=== PATIENT | male | born 1980 | race Caucasian/White ===

== ENCOUNTER → 2020-11-19 15:19 | Outpatient (BNVA) | payer MEDICAID, SELFPAY | PROVIDERS: PCP Family Medicine; Visit Provider Nurse Practitioner Family | DX: Z76.89 Persons encountering health services in other specified circumstances (principal) ==

== ENCOUNTER 2021-03-18 10:10 | Emergency (ER) | payer MEDICAID, SELFPAY ==
[2021-03-18 10:20] VITALS: BP 134/84; PULSE 81; RESP 18; TEMP 37.1; O2SAT 95; BMI 47.2
--- NOTE | 2021-03-18 10:52 | ED_ITS ---
HPI - Ear Problem General Chief complaint: Ear Problems Stated complaint: FB in ear Time Seen by Provider: 03/18/21 10:19 Source: patient Mode of arrival: ambulatory Limitations: no limitations History of Present Illness HPI Narrative: Patient presents to the ED for decreasing hearing in left ear. Patient denies any headache, dizziness, fever, or chills. Patient states mild left ear pain. MD Complaint: ear pain Related Data Home Medications Medication Instructions Recorded Confirmed docusate sodium 100 mg capsule 100 mg PO DAILY 11/19/20 11/19/20 polyethylene glycol 3350 17 17 g PO DAILY 11/19/20 11/19/20 gram/dose oral powder sennosides 8.6 mg tablet 8.6 mg PO BEDTIME 11/19/20 11/19/20 Previous Rx's Medication Instructions Recorded cefpodoxime 200 mg PO Q12H #14 tab 03/18/21 vylygfwe-afggay-WE-thonzonium 4 drp OTIC (EAR) RIGHT QID 7 Days 03/18/21 [Cortisporin-TC] #10 ml Allergies Allergy/AdvReac Type Severity Reaction Status Date / Time Penicillins Allergy Severe RASH/AGITAT Verified 11/19/20 15:19 ION Review of Systems Review of Systems: Yes all other systems are reviewed and are negative Constitutional: Constitutional: Reports as per HPI and Reports no additional constitutional complaints Eyes: Eyes: Reports as per HPI and Reports no additional eye complaints ENT: Reports system reviewed and no additional complaints, except as documented and Reports as per HPI Comments: Ear issues Cardiovascular: Cardiovascular: Reports as per HPI and Reports no additional cardiovascular complaints Respiratory: Respiratory: Reports as per HPI and Reports no additional respiratory complaints Gastrointestinal: Gastrointestinal: Reports as per HPI and Reports no additional gastrointestinal complaints Genitourinary: Genitourinary: Reports no additional male genitourinary complaints and Reports as per HPI Musculoskeletal: Musculoskeletal: Reports no additional musculoskeletal complaints and Reports as per HPI Neurologic: Reports system reviewed and no additional complaints, except as documented and Reports as per HPI Psychiatric: Psychiatric: Reports no additional psychiatric complaints and Reports as per HPI PMFSH Past Medical History Medical History (Updated 03/18/21 @ 10:56 by DAMIEN King) Constipation Paraplegia Surgical History Hx of appendectomy Family History Family History (Updated 11/19/20 @ 15:21 by YAEL Carlson) Father Unknown family medical history Mother No problems noted. Social History Social History (Updated 11/19/20 @ 15:21 by YAEL Carlson) Alcohol intake: current Alcohol intake frequency: does not drink Smoking Status: Current every day smoker Tobacco Type: Cigarette Cigarettes Per Day: 3 Advance Directives: Yes Advance Directives Information Provided: No Advance Directives on File: No Physical Exam Vital Signs: Vital Signs: Last Vital Signs Temp 98.7 F 03/18/21 10:20 Pulse 81 03/18/21 10:20 Resp 18 03/18/21 10:20 BP 134/84 03/18/21 10:20 Pulse Ox 95 03/18/21 10:20 Body Mass Index 47.2 Const: General: cooperative, healthy appearing, comfortable, no acute distress, well developed, alert, awake and Physically active Orientation/consciousness: patient oriented x3 HENMT: Head: Yes normal to inspection, Yes No palpable skull fracture present, Yes normocephalic, Yes atraumatic and No abrasion Ears: hearing grossly normal bilaterally, external ears normal and unable to visualize TM (left ear yellow discharge) Eyes: General: appearance normal, both eyes and all related structures Neck: Neck: Yes normal visual inspection, Yes full ROM, Yes no lymphadenopathy, Yes no meningeal signs, Yes trachea midline, Yes supple and No tender Chest: Chest palpation & inspection: normal inspection of the chest and normal palpation of entire chest wall Resp: Effort & Inspection: normal respiratory effort and able to speak in complete sentences Auscultation: clear to auscultation bilaterally Cardio: Jugular venous distension: no JVD Heart sounds: S1 normal heart sound present and S2 normal heart sound present GI: Inspection: Yes normal to inspection Palpation (GI): Soft to palpation, not firm, nontender, no guarding and not rigid : General: No CVA tenderness and Yes no CVA tenderness Back/Spine/Pelvis: Back: no CVA tenderness, No CVA tenderness and No back tenderness Skin: General skin exam: no rashes or lesions noted and elasticity normal Neuro: General: patient oriented x3, no meningeal signs and CN's II-XI intact bilaterally Cranial nerves: Yes CN's II-XII intact bilaterally Extrem: General: Yes normal to inspection and Yes full ROM Psych: Appearance: grossly normal, well kempt and not disheveled Course Course Course Narrative: History physical exam does not indicate cerumen impaction. History physical exam indicate otitis externa Reevaluation(s) Reevaluation #1: Patient discharged with ear drops and oral antibiotics for otitis media Reevaluation #2: Patient was called at home and informed he should placed Cortisporin the left ear which contains otitis externa MDM - Ear MDM Narrative Medical decision making narrative: Otitis externa Discharge Plan Discharge Clinical Impression: Otitis externa Patient Disposition: Home, Self-Care Instructions: Otitis Externa (ED) Additional Instructions: Return to ED for worsening ear pain, blood from ear, discharge from ear, headache, swelling and redness behind the ear, fever, chills, total loss of hearing, or any other concerning symptoms. Prescriptions: New Cortisporin-TC 3.3-3-10-0.5 mg/mL drops,suspension 4 drp otic (ear) right QID 7 Days Qty: 10 RF: 0 cefpodoxime 200 mg tablet 200 mg PO Q12H Qty: 14 RF: 0 No Action docusate sodium [Colace] 100 mg capsule 100 mg PO DAILY RF: 0 sennosides [Natural Senna Laxative] 8.6 mg tablet 8.6 mg PO BEDTIME RF: 0 polyethylene glycol 3350 [Miralax] 17 gram/dose powder 17 g PO DAILY RF: 0 Referrals: Mckayla Andrade MD [Primary Care Provider] - 2 days (Otitis externa) Interventions: ED Discharge Assessment Last Done: 03/18/21 11:05 Discharge Date/Time: 03/18/21 11:06 Print Language: Anguillan
== END 2021-03-18 11:06 | disposition home or self-care (01) ==
PROVIDERS: Emergency Provider Emergency Medicine; PCP Family Medicine
DX: H60.92 Unspecified otitis externa, left ear (principal); G82.20 Paraplegia, unspecified; F17.210 Nicotine dependence, cigarettes, uncomplicated
CPT/HCPCS: 99283

== ENCOUNTER 2021-11-16 09:48 | Emergency (ER) | payer MEDICAID, SELFPAY ==
[2021-11-16 11:29] VITALS: BP 143/82; PULSE 62; RESP 18; TEMP 36.7; O2SAT 98; BMI 45.1
[2021-11-16 11:45] LABS: COVID-19 Test Positive (Negative)
--- NOTE | 2021-11-16 13:00 | ED.URI ---
HPI - URI/Sore Throat General Chief Complaint: General Medical Stated Complaint: Congestion/ loss of taste & smell Time Seen by Provider: 11/16/21 12:37 Source: patient Mode of arrival: wheelchair Limitations: no limitations History of Present Illness HPI Narrative: 41-year-old male presenting to the ED with COVID like symptoms reports he is vaccinated with the Moderna vaccine 2 shots he was given presenting with complaints of nasal congestion/rhinorrhea, sore throat, loss of taste and smell, dry cough for the past few days worse today. Denies recent travel or sick contacts. Denies any other symptoms complaints or concerns at this time. MD elicited complaint: cough, sore throat, rhinorrhea and nasal congestion Onset (ago): day(s) Consistency: constant and progressively worsening Severity: mild Description of mucous: clear, watery and yellow Able to tolerate fluids by mouth: Yes Exacerbating factors: nothing Relieving factors: nothing Associated symptoms: chills, myalgias, rhinorrhea, nasal congestion, sore throat and cough Treatments prior to arrival: none Related Data Home Medications Medication Instructions Recorded Confirmed docusate sodium 100 mg capsule 100 mg PO DAILY 11/19/20 11/19/20 (Colace) polyethylene glycol 3350 17 17 g PO DAILY 11/19/20 11/19/20 gram/dose oral powder (Miralax) sennosides 8.6 mg tablet (Natural 8.6 mg PO BEDTIME 11/19/20 11/19/20 Senna Laxative) Previous Rx's Medication Instructions Recorded cefpodoxime 200 mg tablet 200 mg PO Q12H #14 tab 03/18/21 wdhjwjxm-hcxjbz-DL-thonzonm 3.3 4 drp OTIC (EAR) RIGHT QID 7 Days 03/18/21 mg-3 mg-10 mg-0.5 mg/mL ear #10 ml drops,susp (Cortisporin-TC) azithromycin 250 mg tablet See Rx Instructions .ROUTE 11/16/21 .COMPLEX #6 tab codeine 10 mg-guaifenesin 100 mg/5 5 ml PO Q6H PRN #120 ml 11/16/21 mL oral liquid (Guaifenesin AC) Allergies Allergy/AdvReac Type Severity Reaction Status Date / Time Penicillins Allergy Severe RASH/AGITAT Verified 11/19/20 15:19 ION Review of Systems Review of Systems: Constitutional : Positive chills/fatigue/malaise, No Weight loss, No Fever, No Night Sweats ENT/Mouth : Positive nasal congestion/sore throat/rhinorrhea, No Hearing loss, No Ear Pain, No Sinus Pain, No Hoarseness, No Swallowing Difficulty Eyes: No Eye Pain, No Swelling, No Redness, No Foreign Body, No Discharge, No Vision Changes Cardiovascular : No Chest Pain, No SOB, No Dyspnea on Exertion, No Orthopnea, No Edema, No Palpitations Respiratory : Positive Cough, No Sputum, No Wheezing, No Smoke Exposure, No Dyspnea Gastrointestinal : No Nausea, No Vomiting, No Diarrhea, No Constipation, No abdominal Pain, No Hematochezia, No Melena Genitourinary : no irregular bleeding, No Dysuria, No Urinary Frequency, No Hematuria, No Urinary Incontinence, No Urgency, No Flank Pain, No Urinary Flow Changes, No Hesitancy Musculoskeletal : No joint pain, positive Myalgias, No Joint Swelling Skin : No Skin Lesions, No rash Neuro : No Weakness, No Numbness, No Paresthesias, No Loss of Consciousness, No Dizziness, No Headache Psych : No Anxiety/Panic, No Depression, No SI/HI/AH/VH, No Social Issues, Heme/Lymph: No Bruising, No Bleeding,No Lymphadenopathy Endocrine : No Polyuria, No Polydipsia, No Temperature Intolerance Yes all other systems are reviewed and are negative [facility] Past Medical History Attestation statement: The following information was validated with the patient. Medical History Constipation Paraplegia Surgical History Hx of appendectomy Family History Family History Father Unknown family medical history Mother No problems noted. Social History Social History Alcohol intake: current Alcohol intake frequency: does not drink Cigarettes Per Day: 3 Advance Directives: No Advance Directives Information Provided: Yes Physical Exam Vital Signs: Vital Signs: Last Vital Signs Temp 98.1 F 11/16/21 11:29 Pulse 62 11/16/21 11:29 Resp 18 11/16/21 11:29 BP 143/82 H 11/16/21 11:29 Pulse Ox 98 11/16/21 11:29 BMI result Body Mass Index 45.1 vital signs have been reviewed as normal and appeared to be correct. Blood pressure normal. Heart rate normal. Respiration rate normal. Temperature normal. Oxygen saturation normal. Appearance: Alert. Oriented X3. No acute distress. Head: Normal external exam. Normocephalic. Atraumatic. Eyes: PERRLA. EOMI. Conjunctiva and sclera normal. Eyelids normal. ENT: EAC normal. TM's Normal. Pharynx normal. Uvula midline. Moist mucous membranes. No trismus noted. No drooling noted. No muffled voice noted. Neck: Normal inspection. Neck supple. FROM. No adenopathy. Thyroid Normal. No meningeal signs. No neck mass noted. CVS: Normal heart rate and rhythm. Heart sound normal. Pulses normal throughout. No murmurs/rales/gallops. Respiratory: No respiratory distress. Painless inspiration. Breath sounds normal. No wheezes/rales/rhonchi noted. Chest nontender. No accessory muscle usage noted or decreased air movement noted. Abdomen: Soft and nontender. Bowel sounds normal in all 4 quadrants. No distention noted. No organomegaly noted. No visible injury noted. Back: No CVA tenderness. Full range of motion noted. No rashes/lesion/induration/fluctuance or signs of infection noted. Skin: Skin warm and dry. Normal skin color. Normal skin turgor. No rashes/lesions/lacerations noted. Extremities: No lower extremity edema. Extremities exhibit normal range of motion. Extremities nontender. Neuro: Oriented X 3. At baseline for motor and sensation per patient and reflexes. Wheelchair-bound at baseline per patient No focal neuro deficits noted. Vascular: + radial pulses/+ 2 distal pedal pulses/+2 dorsalis pedis b/l. Normal cap refill. No cyanosis noted to upper extremity nails and lower extremity toes nails. Course Course Course Narrative: 41-year-old male who is wheelchair-bound presenting to the ED with complaints of a few days of COVID like symptoms. Despite being vaccinated. Patient is positive for COVID. Will DC home with instructions to follow CDC guidelines/quarantine and symptomatic treatment instructions return if any new or worsening symptoms. Patient understands agrees with this plan. MDM - URI/Sore Throat Medical Records Attestation: I reviewed the patient's medical records. Lab Data Attestation: I reviewed the patient's lab results. Labs: Lab Results 11/16/21 Range/Units 11:33 COVID-19 ([facility]WNA) Positive A (Negative) COVID-19 Clin Com See Note Discharge Plan Discharge Clinical Impression: COVID-19 Patient Disposition: Home, Self-Care Instructions: COVID-19 (Coronavirus Disease 2019) (ED) Prescriptions: New azithromycin 250 mg tablet See Rx Instructions .ROUTE .COMPLEX Qty: 6 RF: 0 codeine-guaifenesin [Guaifenesin AC] 10-100 mg/5 mL liquid 5 ml PO Q6H PRN (Reason: cold symptoms) Qty: 120 RF: 0 No Action Cortisporin-TC 3.3-3-10-0.5 mg/mL drops,suspension 4 drp otic (ear) right QID 7 Days Qty: 10 RF: 0 cefpodoxime 200 mg tablet 200 mg PO Q12H Qty: 14 RF: 0 docusate sodium [Colace] 100 mg capsule 100 mg PO DAILY RF: 0 sennosides [Natural Senna Laxative] 8.6 mg tablet 8.6 mg PO BEDTIME RF: 0 polyethylene glycol 3350 [Miralax] 17 gram/dose powder 17 g PO DAILY RF: 0 Referrals: Mckayla Andrade MD [Primary Care Provider] - 2 days Stand Alone Forms: Work/School Release Print Language: Ecuadorean
== END 2021-11-16 13:18 | disposition home or self-care (01) ==
PROVIDERS: Emergency Provider Internal Medicine; PCP Family Medicine
DX: U07.1 COVID-19 (principal); R43.8 Other disturbances of smell and taste
CPT/HCPCS: 87635; 99283

== ENCOUNTER 2022-05-12 10:25 | Emergency (ER) | payer MEDICAID, SELFPAY ==
[2022-05-12 11:25] VITALS: BP 127/74; PULSE 71; RESP 16; TEMP 36.6; O2SAT 97; BMI 34.4
--- NOTE | 2022-05-12 12:39 | ED_ITS ---
HPI - Ear Problem General Chief complaint: Ear Problems Stated complaint: L ear pain Time Seen by Provider: 05/12/22 12:39 Source: patient Mode of arrival: wheelchair Limitations: no limitations History of Present Illness HPI Narrative: Patient is a 41 year old male presenting to the emergency department today with left ear pain. Patient states that for the last 3 days, he has had intermittent left ear pain with some drainage. Patient denies any dizziness, lightheadedness, abdominal pain, nausea, vomiting, fever, chills, blurry vision, double vision, loss of vision, chest pain, difficulty breathing, shortness of breath, back pain, night sweats, pain with urination, increased urinary frequency, increased urinary urgency, blood in his urine or stool, syncope or a near syncopal episode, recent trauma or falls, bowel incontinence, bladder incontinence, bowel retention, bladder retention, or any other complaints at this time. MD Complaint: ear pain Location: left ear Duration: constant Severity: mild Relieving factors: nothing Exacerbating factors: nothing Discharge from ear: yes - clear Treatment prior to arrival: none Related Data Home Medications Medication Instructions Recorded Confirmed docusate sodium 100 mg capsule 100 mg PO DAILY 11/19/20 11/19/20 (Colace) polyethylene glycol 3350 17 17 g PO DAILY 11/19/20 11/19/20 gram/dose oral powder (Miralax) sennosides 8.6 mg tablet (Natural 8.6 mg PO BEDTIME 11/19/20 11/19/20 Senna Laxative) Previous Rx's Medication Instructions Recorded cefpodoxime 200 mg tablet 200 mg PO Q12H #14 tabs 03/18/21 spsuniwz-usbjxw-NQ-thonzonm 3.3 4 drp otic (ear) right QID 7 days 03/18/21 mg-3 mg-10 mg-0.5 mg/mL ear #10 mL drops,susp (Cortisporin-TC) azithromycin 250 mg tablet See Rx Instructions PO .COMPLEX #6 11/16/21 tabs codeine 10 mg-guaifenesin 100 mg/5 5 ml PO Q6H PRN cold symptoms #120 11/16/21 mL oral liquid (Guaifenesin AC) mL amoxicillin 875 mg tablet 875 mg PO BID 5 days #10 tabs 05/12/22 ciprofloxacin HCl 0.3 % eye drops 2 drp ophthalmic-Left Q4H 5 days 05/12/22 #5 mL Allergies Allergy/AdvReac Type Severity Reaction Status Date / Time Penicillins Allergy Severe RASH/AGITAT Verified 11/19/20 15:19 ION Review of Systems Constitutional: Constitutional: Reports no additional constitutional complaints, Denies chills, Denies fever(s) and Denies night sweats Eyes: Eyes: Reports no additional eye complaints, Denies blurry vision, Denies change in vision, Denies diplopia, Denies eye discharge, Denies loss of vision and Denies eye pain ENT: Denies dizziness Comments: left ear pain Cardiovascular: Cardiovascular: Reports no additional cardiovascular complaints, Denies chest pain, Denies lightheadedness, Denies Loss of Consciousness and Denies dyspnea Respiratory: Respiratory: Reports no additional respiratory complaints and Denies dyspnea Gastrointestinal: Gastrointestinal: Reports no additional gastrointestinal complaints, Denies abdominal pain, Denies melena, Denies hematochezia, Denies change in bowel habits and Denies change in stool character Genitourinary: Genitourinary: Reports no additional male genitourinary complaints, Denies hematuria, Denies oliguria, Denies difficulty urinating, Ziyad es dysuria, Denies urinary frequency, Denies urinary hesitancy, Denies urinary incontinence and Denies urinary urgency Musculoskeletal: Musculoskeletal: Reports no additional musculoskeletal complaints, Denies numbness and Denies tingling Neurologic: Denies dizziness, Denies loss of vision, Denies numbness and Ziyad es tingling Psychiatric: Psychiatric: Reports no additional psychiatric complaints Endocrine: Endocrine: Reports no additional endocrine complaints Hematologic/Lymphatic: Hematologic/Lymphatic: Reports no additional hematologic/lymphatic complaints Allergic/Immunologic: Allergic/Immunologic: Reports no additional allergic/immunologic complaints [facility] Past Medical History Attestation statement: The following information was validated with the patient. Source: old records reviewed Medical History Constipation Paraplegia Surgical History Hx of appendectomy Family History Family History Father Unknown family medical history Mother No problems noted. Social History Social History Alcohol intake: current Alcohol intake frequency: does not drink Cigarettes Per Day: 3 Advance Directives: No Advance Directives Information Provided: Yes Physical Exam Vital Signs: Vital Signs: Last Vital Signs Temp 97.9 F 05/12/22 11:25 Pulse 71 05/12/22 11:25 Resp 16 05/12/22 11:25 BP 127/74 05/12/22 11:25 Pulse Ox 97 05/12/22 11:25 O2 Del Method 05/12/22 11:25 BMI result Body Mass Index 34.4 Const: General: cooperative, no acute distress, alert and awake Nutritional Appearance: well nourished Orientation/consciousness: patient oriented x3 Limitations: no limitations HEENT: Head: Yes normal to inspection and Yes atraumatic Ears: hearing grossly normal bilaterally, external ears normal and other (left TM erythematous, minimal clear drainage noted) General nose exam: Normal external nose present, no nasal discharge noted and no epistaxis Face and sinus: Yes normal facial exam, No abrasion and No laceration Mouth: Normal oral and palatal mucosa present, no drooling and no muffled voice Eyes: General: appearance normal, both eyes and all related structures Periorbital: periorbital findings normal Eyelids: Yes eyelids normal Conjunctivae: conjunctivae normal Pupils: Equal, round and reactive pupils present EOM: EOMs intact bilaterally Neck: Neck: Yes normal visual inspection, Yes full ROM and Yes no lymphadenopathy Chest: Chest palpation & inspection: normal inspection of the chest Resp: Effort & Inspection: normal respiratory effort and able to speak in complete sentences Auscultation: clear to auscultation bilaterally Cardio: Rate: regular rate Rhythm: regular rhythm GI: Inspection: Yes normal to inspection Neuro: General: patient oriented x3 and moves all extremities Cranial nerves: Yes Equal, round and reactive pupils present Cognition (Neuro): normal cognition Motor exam (neuro): 5/5 motor strength present throughout Sensory Exam: Normal double simultaneous stimulation for sensation Coordination: [id number]-[id number] test normal Extrem: General: Yes normal to inspection, Yes full ROM and Yes capillary refill normal Psych: Appearance: grossly normal Mental Status: mental status grossly normal Affect: normal affect Attitude: cooperative Thought process: Normal thought process present Thought content: Normal thought content present Insight: Good insight present (Psych) MDM - Ear MDM Narrative Medical decision making narrative: Patient is a 41 year old male presenting to the emergency department today with left ear pain. Patient's physical exam showed an erythematous left ear canal and minimal clear drainage. I explained my physical exam findings to the patient. I answered all questions asked by the patient. I stressed the importance of the patient taking his medication as prescribed. I stressed the importance of the patient following up with his primary care provider. I stressed the importance of the patient returning to the emergency department immediately if his symptoms were to worsen or if he were to develop any dizziness, shortness of breath, difficulty breathing, chest pain, blurry vision, loss of vision, nausea, vomiting, abdominal pain, fever, chills, back pain, or any other complaints. Patient verbalized agreement and understanding with this treatment plan and discharge. Differential Diagnosis Differential diagnosis: Likely otitis externa and otitis media Medical Records Attestation: I reviewed the patient's medical records. Discharge Plan Discharge Clinical Impression: Otitis externa, Otitis media Patient Disposition: Home, Self-Care Instructions: Otitis Externa (ED), How to Use Ear Drops (ED), Ear Infection (ED) Additional Instructions: Follow up with your primary care provider. Return to the emergency department immediately if your symptoms worsen or if you develop any dizziness, shortness of breath, difficulty breathing, chest pain, blurry vision, loss of vision, nausea, vomiting, abdominal pain, fever, chills, back pain, or any other complaints. Prescriptions: New amoxicillin 875 mg tablet 875 mg PO BID 5 Days Qty: 10 0RF ciprofloxacin HCl 0.3 % drops 2 drp ophthalmic-Left Q4H 5 Days Qty: 5 0RF Rx Instructions: to be used in ear No Action Cortisporin-TC 3.3-3-10-0.5 mg/mL drops,suspension 4 drp otic (ear) right QID 7 Days Qty: 10 0RF cefpodoxime 200 mg tablet 200 mg PO Q12H Qty: 14 0RF Rx Instructions: must administer with a meal/food azithromycin 250 mg tablet See Rx Instructions .ROUTE .COMPLEX Qty: 6 0RF Rx Instructions: take 500 mg today (day 1), then 250 mg for 4 days (days 2-5) codeine-guaifenesin [Guaifenesin AC] 10-100 mg/5 mL liquid 5 ml PO Q6H PRN (Reason: cold symptoms) Qty: 120 0RF docusate sodium [Colace] 100 mg capsule 100 mg PO DAILY sennosides [Natural Senna Laxative] 8.6 mg tablet 8.6 mg PO BEDTIME polyethylene glycol 3350 [Miralax] 17 gram/dose powder 17 g PO DAILY Referrals: [facility] [Primary Care Provider] - Print Language: Slovenian
== END 2022-05-12 14:04 | disposition home or self-care (01) ==
PROVIDERS: Emergency Provider Emergency Medicine Emergency Medical Services
DX: H66.92 Otitis media, unspecified, left ear (principal); H60.92 Unspecified otitis externa, left ear
CPT/HCPCS: 99282; 99283

== ENCOUNTER 2022-06-13 09:51 | Emergency (ER) | payer MEDICAID, SELFPAY ==
[2022-06-13 09:56] VITALS: BP 150/80; PULSE 71; RESP 18; TEMP 36.6; O2SAT 98; BMI 34.4
[2022-06-13] MEDS: Diphth,Pertus(ACell),Tet Adult 0.5 ML SYRINGE IM (11:28)
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
== END 2022-06-13 12:27 | disposition home or self-care (01) ==
PROVIDERS: Emergency Provider Emergency Medicine; PCP Family Medicine
DX: S81.812A Laceration without foreign body, left lower leg, initial encounter (principal); S80.812A Abrasion, left lower leg, initial encounter; W45.8XXA Other foreign body or object entering through skin, initial encounter; Y93.9 Activity, unspecified; Y92.9 Unspecified place or not applicable; Y99.9 Unspecified external cause status; F17.210 Nicotine dependence, cigarettes, uncomplicated; Z71.6 Tobacco abuse counseling; Z79.899 Other long term (current) drug therapy
CPT/HCPCS: 90471; 90715; 99283; 99284

== ENCOUNTER 2022-09-14 12:46 | Emergency (ER) | payer MEDICAID, SELFPAY ==
--- NOTE | 2022-09-14 | ECG_ITS ---
Test Reason : NUMBNESS TNGLING Blood Pressure : / mmHG Vent. Rate : 096 BPM Atrial Rate : 096 BPM P-R Int : 128 ms QRS Dur : 084 ms QT Int : 352 ms P-R-T Axes : 076 052 037 degrees QTc Int : 444 ms Poor data quality Normal sinus rhythm RSR' or QR pattern in V1 suggests right ventricular conduction delay Borderline ECG When compared with ECG of 27-NOV-2015 18:36, No significant changes seen Referred By: Generic ED Physician Electronically Signed By:LOCO BARRERA MD
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
--- NOTE | ~2022-09-14 | CT_ITS ---
EXAMINATION: CT HEAD WITHOUT CONTRAST CLINICAL INFORMATION: Shortness of breath. Tingling in the face. COMPARISON: No relevant prior imaging. TECHNIQUE: Contiguous axial imaging was performed from the skull base to vertex without intravenous administration of contrast. This CT examination was performed using dose optimization techniques as appropriate, variously including the following: *Automated exposure control *Adjustment of mA and/or kV according to patient size (this includes techniques or standardized protocols for targeted exams where dose is matched to indication/reason for exam; i.e. extremities or head) *Use of iterative reconstruction technique DLP: 2102 mGy-cm FINDINGS: There is no acute intracranial hemorrhage or abnormal extra-axial collection. No intracranial mass effect midline shift. Lateral and third ventricles are normal. No hydrocephalus. Huff-white matter differentiation is preserved and there is no evidence of acute territorial infarct. The calvarium and skull base are intact. Partial opacification of the left mastoid air cells and middle ear cavity. No active paranasal sinus disease. Globes and orbits are symmetric. CT/CT head/brain wo IV con IMPRESSION: Unremarkable CT scan of the head.
--- NOTE | ~2022-09-14 | XR_ITS ---
EXAMINATION: XR CHEST CLINICAL INFORMATION: Shortness of breath. Tingling to face. COMPARISON: Multiple priors with the last chest x-ray of 09/14/2019. TECHNIQUE: 2 views of the chest were obtained. FINDINGS: Cardiomediastinal silhouette is stable and normal. Lungs are mildly hypoexpanded. No focal consolidation, changes of congestion or pleural effusions are seen. No pneumothorax. Regional skeleton is intact. Visualized upper abdomen is unremarkable. XR/XR chest 2V IMPRESSION: No radiographic evidence of pneumonia or pulmonary edema. No acute pulmonary process.
[2022-09-14 13:17] VITALS: BP 168/102; PULSE 92; O2SAT 99
[2022-09-14 13:19] VITALS: BP 157/102; PULSE 101; RESP 22; TEMP 37.1; O2SAT 98; BMI 40.7
[2022-09-14 14:39] LABS: Appearance Urine Clear; Color Urine Yellow; Glucose Urine UA Negative (Negative); Leukocyte Esterase Urine Negative (Negative); Nitrite Urine Positive (Negative); PH 7.5 (5.0-9.0); Specific Gravity - Urine 1.015 (1.005-1.025); UMIC TRIGGER UACC YES; Urine Blood Negative (Negative); Urine Ketones Negative (Negative); Urine Protein Negative (Neg-Trace)
[2022-09-14 14:44] LABS: Bacteria Urine 4+ (None Seen); Hyaline Casts Urine 0-2 /LPF (0-2); RBC Urine 0-2 /HPF (0-2); Squamous Epithelial Cell Urine 0-2 /HPF (0-2); UACC Culture Trigger YES; WBC Urine 0-5 /HPF (0-5)
[2022-09-14 15:03] LABS: Prothrombin Time 11.2 SEC (10.0-13.1)
[2022-09-14 15:07] LABS: Lactic Acid 1.1 mmol/L (0.5-2.0)
[2022-09-14 15:13] LABS: Alanine Aminotransferase 20 U/L (0-40); Alkaline Phosphatase 116 U/L (39-117); Anion Gap 16 (12-20); Aspartate Amino Transferase 16 U/L (5-37); Bilirubin Total 0.7 mg/dL (0.0-1.0); Blood Urea Nitrogen 8 mg/dL (9-16); Calcium 9.1 mg/dL (8.4-10.2); Carbon Dioxide 22 mmol/L (22-29); Chloride 104 mmol/L (96-108); Creatinine Clr Calc Pharmacy 177.2; Estimated Glomerular Filt Rate > 60; Glucose Random 102 mg/dL (60-115); Magnesium 1.9 mg/dL (1.6-2.6); Potassium 4.1 mmol/L (3.3-5.1); Sodium 138 mmol/L (135-145); Total Protein 7.7 g/dL (6.5-8.0)
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
[2022-09-14] MEDS: hydrOXYzine HCL 50 MG TABLET PO (15:52)
[2022-09-14 16:26] LABS: MANUAL DIFF FLAG NO
[2022-09-14 16:28] LABS: Basophils Percent Auto 0.3 % (0-2); Eosinophils Percent Auto 0.1 % (0-4); Hematocrit 46.4 % (42.0-52.0); Imm Gran Abs Auto 0.06 X10*3/uL (0.00-0.03); Imm Gran Pct Auto 0.4 % (0.0-0.4); Lymphocytes Absolute Auto 1.6 X10*3/uL (1.2-4.9); Mean Corpuscular HGB Conc 32.3 g/dl (31.0-36.0); Mean Corpuscular Hemoglobin 28.7 pg (27.0-33.0); Mean Corpuscular Volume 88.7 fL (80.0-98.0); Mean Platelet Volume 8.8 fL (9.4-12.4); Monocytes Absolute Auto 0.8 X10*3/uL (0.1-1.2); Monocytes Percent Auto 6.2 % (2-11); Platelet Count 236 X10*3/uL (160-400); Red Blood Count 5.23 X10*6/uL (4.60-5.80); Red Cell Distribution Width 12.7 % (11.0-16.0); White Blood Count 13.6 X10*3/uL (4.8-10.8)
[2022-09-14 19:01] LABS: Troponin-I High Sensitivity 14.5 ng/L (<3.5-35.0)
[2022-09-14] MEDS: levoFLOXacin 750 MG TABLET PO (19:12)
== END 2022-09-14 20:01 | disposition home or self-care (01) ==
PROVIDERS: Physician Assistant Medical; Emergency Provider Emergency Medicine
DX: N39.0 Urinary tract infection, site not specified (principal); R51.9 Headache, unspecified; R42 Dizziness and giddiness; F41.9 Anxiety disorder, unspecified; Z79.899 Other long term (current) drug therapy
CPT/HCPCS: 36415; 70450; 71046; 74176; 80053; 81001; 83605; 83735; 84484; 85025; 85610; 87040; 87086; 87088; 87186; 93005; 99284

== ENCOUNTER 2022-11-10 14:22 | Emergency (ER) | payer MEDICAID, SELFPAY ==
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
[2022-11-10 18:19] VITALS: BP 132/84; PULSE 81; RESP 16; TEMP 36.6; O2SAT 97; BMI 34.9
[2022-11-10] MEDS: Morphine Sulfate 10 MG/ML CARTRIDGE IM (22:05)
== END 2022-11-10 22:53 | disposition home or self-care (01) ==
PROVIDERS: Emergency Provider Internal Medicine; PCP Family Medicine
DX: S39.012A Strain of muscle, fascia and tendon of lower back, initial encounter (principal); X50.9XXA Other and unspecified overexertion or strenuous movements or postures, initial encounter; G82.20 Paraplegia, unspecified; Z99.3 Dependence on wheelchair; Y93.89 Activity, other specified; Y92.9 Unspecified place or not applicable; Y99.9 Unspecified external cause status
CPT/HCPCS: 72100; 96372; 99282; 99284; J2270

== ENCOUNTER 2023-05-25 10:02 | Outpatient (AMB) | payer MEDICAID, SELFPAY ==
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
== END 2023-05-25 10:47 | disposition home or self-care (01) ==
PROVIDERS: PCP Nurse Practitioner Primary Care; Visit Provider Nurse Practitioner Family
DX: N31.9 Neuromuscular dysfunction of bladder, unspecified (principal); N39.0 Urinary tract infection, site not specified
CPT/HCPCS: 99204

== ENCOUNTER → 2023-05-25 10:02 | Outpatient (BNVA) | payer MEDICAID, SELFPAY | PROVIDERS: PCP Nurse Practitioner Primary Care; Visit Provider Nurse Practitioner Family | DX: N31.9 Neuromuscular dysfunction of bladder, unspecified (principal); N39.0 Urinary tract infection, site not specified | CPT/HCPCS: 51798; 99204 ==

== ENCOUNTER 2023-06-29 12:32 | Outpatient (REF) | payer MEDICAID, SELFPAY ==
--- NOTE | ~2023-06-29 | US_ITS ---
EXAMINATION: US RETROPERITONEAL COMPLETE (RENAL) CLINICAL INFORMATION: Neurogenic bladder, UTI. COMPARISON: CT abdomen and pelvis without contrast 09/14/2022. Renal ultrasound 06/18/2015. TECHNIQUE: Real-time imaging of the kidneys and bladder. Limited visualization due to bowel gas. FINDINGS: RIGHT KIDNEY: 12.6 x 5.3 x 6.4 cm (SAG x AP x TRV). No hydronephrosis. No renal calculi. Renal cortical thickness is normal. Limited visualization. LEFT KIDNEY: 13.0 x 6.9 x 5.5 cm (SAG x AP x TRV). No hydronephrosis. No renal calculi. Renal cortical thickness is normal. Limited visualization. BLADDER: Well distended. Diffuse trabeculation of the bladder wall. Bilateral ureteral jets are demonstrated. Prevoid bladder volume is 250.61 mL. Postvoid bladder volume is 13.32 mL. The prostate volume is 35.6 mL. US/US retroperitoneal comp IMPRESSION: 1. No hydronephrosis. No renal calculi. Renal cortical thickness is normal. Limited visualization. 2. Diffuse trabeculation of the bladder wall. 3. Prostate volume 35.6 mL.
== END 2023-06-29 12:33 | disposition home or self-care (01) ==
LOC: HO.US 12:32
PROVIDERS: Visit Provider Nurse Practitioner Family
DX: N31.9 Neuromuscular dysfunction of bladder, unspecified (principal)
CPT/HCPCS: 76770

== ENCOUNTER 2023-08-22 12:33 | Emergency (ER) | payer MEDICAID, SELFPAY ==
--- NOTE | ~2023-08-22 | CT_ITS ---
EXAMINATION: CT PELVIS WITH CONTRAST CLINICAL INFORMATION: Left buttock abscess COMPARISON: 09/14/2022 TECHNIQUE: Helical scanning was performed with submillimeter collimation through the pelvis with the use of oral contrast and during bolus intravenous injection of 100 mL of Omnipaque 350 intravenous contrast. Sagittal and coronal multiplanar 2-D reconstructions were obtained. This CT examination was performed using dose optimization techniques as appropriate, variously including the following: *Automated exposure control *Adjustment of mA and/or kV according to patient size (this includes techniques or standardized protocols for targeted exams where dose is matched to indication/reason for exam; i.e. extremities or head) *Use of iterative reconstruction technique DLP: 490 mGy-cm FINDINGS: The bowel pattern in the pelvis is nonobstructing. Once again prominent nodes in the external iliac chain. These appear to be increasing from previous. These could be reactive. Underlying malignancy cannot be excluded. Extensive soft tissue abnormality in the buttock region. This is characterized by significant soft tissue stranding with areas of air density and several loculated areas of fluid density. Abnormal enhancement with fluid density extends into the region of the scrotum and there is also air density in the region of the scrotum here and therefore infection in the scrotal sac and possibly involving the testicle must be considered here especially on the right There is no acute bony finding. CT/CT pelvis w IV con IMPRESSION: This exam is abnormal. Extensive soft tissue abnormality with areas of air density and multiple fluid pockets involving the buttock region on both the right and the left and on the right as described fluid collection/infection may well extend into the right greater than left scrotal sac, possibly involving testicles Enlarged external iliac nodes enlarging from previous exam. These could be reactive. Underlying malignancy cannot be excluded
[2023-08-22 12:59] VITALS: BP 128/71; PULSE 120; RESP 17; TEMP 36.3; O2SAT 97; BMI 45.2
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
[2023-08-22 13:47] LABS: MANUAL DIFF FLAG NO
[2023-08-22 13:49] LABS: Basophils Percent Auto 0.2 % (0-2); Eosinophils Percent Auto 0.1 % (0-4); Hemoglobin 14.9 g/dl (14.0-18.0); Imm Gran Abs Auto 0.25 X10*3/uL (0.00-0.03); Imm Gran Pct Auto 1.3 % (0.0-0.4); Lymphocytes Absolute Auto 0.7 X10*3/uL (1.2-4.9); Lymphocytes Percent Auto 3.7 % (20-40); Mean Corpuscular HGB Conc 33.1 g/dl (31.0-36.0); Mean Corpuscular Volume 87.7 fL (80.0-98.0); Mean Platelet Volume 8.9 fL (9.4-12.4); Monocytes Percent Auto 5.3 % (2-11); Neutrophils Absolute Auto 17.3 x10*3/uL (2.0-8.3); Neutrophils Percent Auto 89.4 % (45-73); Platelet Count 176 X10*3/uL (160-400); Red Blood Count 5.13 X10*6/uL (4.60-5.80); Red Cell Distribution Width 13.7 % (11.0-16.0); White Blood Count 19.4 X10*3/uL (4.8-10.8)
[2023-08-22 14:09] LABS: Lactic Acid 1.4 mmol/L (0.5-2.0)
[2023-08-22 14:14] LABS: Alanine Aminotransferase 14 U/L (0-40); Albumin Level 3.6 g/dL (3.5-5.0); Alkaline Phosphatase 113 U/L (39-117); Anion Gap 14 (12-20); Aspartate Amino Transferase 11 U/L (5-37); Bilirubin Direct 0.5 mg/dL (0.0-0.5); Bilirubin Total 1.4 mg/dL (0.0-1.0); Blood Urea Nitrogen 7 mg/dL (9-16); C Reactive Protein 24.51 mg/dL (< or = 0.50); Calcium 9.2 mg/dL (8.4-10.2); Carbon Dioxide 21 mmol/L (22-29); Chloride 106 mmol/L (96-108); Creatinine Clr Calc Pharmacy 169.4; Estimated Glomerular Filt Rate > 60; Glucose Random 84 mg/dL (60-115); Potassium 3.7 mmol/L (3.3-5.1); Sodium 137 mmol/L (135-145); Total Protein 7.6 g/dL (6.5-8.0)
[2023-08-22 14:23] LABS: Erythrocyte Sedimentation Rate 30 MM/HR (0-15)
[2023-08-22] MEDS: Acetaminophen 325 MG TABLET 975 MG PO (17:38)
[2023-08-22 17:40] VITALS: BP 120/71; PULSE 117; RESP 20; O2SAT 98
[2023-08-22] MEDS: cefTRIAXone sodium 1 GM in 0.9 % Sodium Chloride 50 ML IV (20:10)
[2023-08-22] MEDS: Morphine Sulfate 4 MG/ML CARTRIDGE IVPUSH (20:10)
[2023-08-22] MEDS: Lidocaine HCl 1 % MPF 5 ML VIAL INFILTRATI (20:11)
[2023-08-22] MEDS: ondansetron HCL 4 MG/2 ML VIAL IVPUSH (20:17)
[2023-08-22 20:32] LABS: INTERNATIONAL NORM RATIO 1.1 (0.9-1.1); Prothrombin Time 13.8 SEC (11.1-13.3)
[2023-08-22 20:34] LABS: Partial Thromboplastin Time 26.8 SEC (26.0-36.4)
[2023-08-22] MEDS: iohexoL 350 MG/ML 100 ML INFUS..BTL IV (20:38)
[2023-08-22] MEDS: 0.9 % Sodium Chloride 1,000 ML 999 ML IV (20:43)
[2023-08-22] MEDS: vancomycin/NS 2,000 MG/500 ML PLAST..BAG 250 MG IV (20:51)
[2023-08-22 20:58] VITALS: BP 114/63; PULSE 113; RESP 18; TEMP 36.8; O2SAT 98
[2023-08-22] MEDS: HYDROmorphone HCl 1 MG/ML SYRINGE IVPUSH (21:55)
--- NOTE | 2023-08-22 22:04 | PC.NURSE ---
pt reported 9/10 buttock pain, medicated with 1mg of dilaudid ivp
--- NOTE | 2023-08-23 00:06 | PC.NURSE ---
pt reassessed for psin reported tolerable 3/10 buttock pain
--- NOTE | 2023-08-23 00:10 | PC.NURSE ---
verbal report given to charge nurse in the ED
[2023-08-23] MEDS: metroNIDAZOLE/NS 500 MG/100 ML PIGGYBACK 100 MG IV (00:14)
--- NOTE | 2023-08-23 00:24 | PC.NURSE ---
pt reported he straight cath himself when needed
--- NOTE | 2023-08-23 00:34 | MHC.EDTECH ---
call out to daniel at 0020 to book transport for pt to [facility], estimated eta given was within the hour
[2023-08-23 00:57] VITALS: BP 93/56; PULSE 116; RESP 20; O2SAT 96
[2023-08-23] MEDS: HYDROmorphone HCl 1 MG/ML SYRINGE IVPUSH (01:36)
--- NOTE | 2023-08-23 02:00 | MHC.EDTECH ---
Accepted at 0004 to [facility] in [place] to DR. Quinn Nurse to Nurse information was given
--- NOTE | 2023-08-23 02:01 | PC.NURSE ---
pt transferred to [facility], medicated with 1mg of dilaudid prior to transfer
== END 2023-08-23 02:02 | disposition short-term general hospital (02) ==
PROVIDERS: Nurse Practitioner Family; Emergency Provider Emergency Medicine Emergency Medical Services; PCP Nurse Practitioner Primary Care
DX: L02.31 Cutaneous abscess of buttock (principal); N49.2 Inflammatory disorders of scrotum; D72.829 Elevated white blood cell count, unspecified; R79.82 Elevated C-reactive protein (CRP); N31.9 Neuromuscular dysfunction of bladder, unspecified; G82.20 Paraplegia, unspecified; T14.8XXS Other injury of unspecified body region, sequela; W34.00XS Accidental discharge from unspecified firearms or gun, sequela; R50.9 Fever, unspecified; R11.2 Nausea with vomiting, unspecified
CPT/HCPCS: 36415; 72193; 80048; 80076; 83605; 85025; 85610; 85652; 85730; 86140; 87040; 96365; 96366; 96367; 96375; 99285; J0696; J1170; J2270; J2405; J3370; Q9967

== ENCOUNTER 2023-08-28 10:38 | Outpatient (REF) | payer MEDICAID, SELFPAY ==
[2023-08-28 11:45] LABS: Hematocrit 44.2 % (42.0-52.0); Hemoglobin 14.2 g/dl (14.0-18.0); Mean Corpuscular HGB Conc 32.1 g/dl (31.0-36.0); Mean Corpuscular Hemoglobin 28.2 pg (27.0-33.0); Mean Corpuscular Volume 87.9 fL (80.0-98.0); Mean Platelet Volume 8.6 fL (9.4-12.4); Platelet Count 424 X10*3/uL (160-400); Red Blood Count 5.03 X10*6/uL (4.60-5.80); Red Cell Distribution Width 14.1 % (11.0-16.0); White Blood Count 13.7 X10*3/uL (4.8-10.8)
[2023-08-28 11:58] LABS: Anion Gap 13 (12-20); Blood Urea Nitrogen 10 mg/dL (9-16); Calcium 9.1 mg/dL (8.4-10.2); Carbon Dioxide 25 mmol/L (22-29); Chloride 103 mmol/L (96-108); Estimated Glomerular Filt Rate > 60; Glucose Random 96 mg/dL (60-115); Potassium 3.7 mmol/L (3.3-5.1); Sodium 137 mmol/L (135-145)
[2023-08-28 12:59] LABS: Band Neutrophils Percent 1 % (3-5); Basophils Abs Manual 0.1 X10*3/uL (0.0-0.2); Basophils Percent Manual 1 % (0-2); Eosinophils Absolute Manual 0.7 X10*3/uL (0.0-0.4); Eosinophils Percent Manual 5 % (0-4); Lymphocytes Absolute Manual 2.6 X10*3/uL (1.2-4.9); Lymphocytes Percent Manual 19 % (20-40); Metamyelocytes Absolute 0.1 X10*3/uL; Metamyelocytes Percent 1 %; Monocytes Absolute Manual 0.8 X10*3/uL (0.1-1.2); Monocytes Percent Manual 6 % (2-11); Neutrophils Absolute Manual 9.3 X10*3/uL (2.0-8.3); Neutrophils Percent Manual 67 % (45-73)
[2023-08-28 13:00] LABS: Platelet Estimate SLIGHTLY INCREASED (NORMAL); Platelet Morphology Comment NORMAL; RBC Morphology NOTED
== END 2023-08-28 10:39 | disposition home or self-care (01) ==
LOC: HO.HHCL 10:38
PROVIDERS: Visit Provider Internal Medicine Geriatric Medicine
DX: L02.31 Cutaneous abscess of buttock (principal); L03.317 Cellulitis of buttock; F32.A Depression, unspecified
CPT/HCPCS: 36415; 80048; 85007; 85027

== ENCOUNTER 2023-09-02 07:57 | Outpatient (RCR) | payer MEDICAID, SELFPAY | END 2023-11-25 17:00 | disposition home or self-care (01) | LOC: HO.WCC 07:57 | PROVIDERS: PCP Nurse Practitioner Primary Care; Visit Provider Surgery | DX: L02.31 Cutaneous abscess of buttock (principal); L02.215 Cutaneous abscess of perineum; G82.21 Paraplegia, complete; Z79.2 Long term (current) use of antibiotics; Z79.899 Other long term (current) drug therapy | CPT/HCPCS: 99212; 99213 ==

== ENCOUNTER 2024-01-06 20:22 | Emergency (ER) | payer MEDICAID, SELFPAY ==
--- NOTE | ~2024-01-06 | US_ITS ---
EXAMINATION: US ABDOMEN LIMITED CLINICAL INFORMATION: Right upper quadrant/back pain. COMPARISON: CT 01/06/2024 TECHNIQUE: Real-time imaging of the gallbladder and common bile duct FINDINGS: GALLBLADDER: The gallbladder is physiologically distended with gallstones noted. No appreciable gallbladder wall thickening or pericholecystic fluid. COMMON BILE DUCT: Normal in caliber measuring 0.4 cm in diameter. US/US abdomen limited IMPRESSION: Cholelithiasis without additional findings of cholecystitis.
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
[2024-01-06 20:28] VITALS: BP 130/70; PULSE 94
[2024-01-06 20:29] VITALS: BP 113/71; PULSE 82; RESP 16; TEMP 36.8; O2SAT 99; BMI 35.1
[2024-01-06 20:53] LABS: Basophils Percent Auto 0.1 % (0-2); Eosinophils Absolute Auto 0.3 X10*3/uL (0.0-0.4); Eosinophils Percent Auto 2.1 % (0-4); Hematocrit 40.1 % (42.0-52.0); Hemoglobin 13.4 g/dl (14.0-18.0); Imm Gran Abs Auto 0.05 X10*3/uL (0.00-0.03); Imm Gran Pct Auto 0.4 % (0.0-0.4); Lymphocytes Absolute Auto 1.2 X10*3/uL (1.2-4.9); Lymphocytes Percent Auto 9.3 % (20-40); MANUAL DIFF FLAG SCAN; Mean Corpuscular HGB Conc 33.4 g/dl (31.0-36.0); Mean Corpuscular Hemoglobin 28.9 pg (27.0-33.0); Mean Corpuscular Volume 86.4 fL (80.0-98.0); Mean Platelet Volume 8.7 fL (9.4-12.4); Monocytes Absolute Auto 1.5 X10*3/uL (0.1-1.2); Monocytes Percent Auto 11.6 % (2-11); Neutrophils Absolute Auto 10.1 x10*3/uL (2.0-8.3); Neutrophils Percent Auto 76.5 % (45-73); Platelet Count 207 X10*3/uL (160-400); Red Blood Count 4.64 X10*6/uL (4.60-5.80); Red Cell Distribution Width 12.9 % (11.0-16.0); SCAN SMEAR FLAG 1; White Blood Count 13.2 X10*3/uL (4.8-10.8)
[2024-01-06 20:59] LABS: SLIDE REVIEW VERIFIED
[2024-01-06 21:10] LABS: Anion Gap 10 (12-20)
[2024-01-06 21:33] LABS: Appearance Urine Cloudy; Color Urine Dark Yellow; Glucose Urine UA Negative (Negative); Leukocyte Esterase Urine Small (1+) (Negative); Nitrite Urine Positive (Negative); Specific Gravity - Urine >= 1.030 (1.005-1.025); UMIC TRIGGER UACC YES; Urine Blood Negative (Negative); Urine Ketones Trace mg/dL (Negative); Urine Protein Trace mg/dL (Neg-Trace)
[2024-01-06 21:46] LABS: Bacteria Urine 4+ (None Seen); Hyaline Casts Urine 0-2 /LPF (0-2); RBC Urine 0-2 /HPF (0-2); UACC Culture Trigger YES; WBC Urine 0-5 /HPF (0-5)
--- NOTE | 2024-01-06 21:57 | ED.GENADULT ---
HPI - General Adult General Chief complaint: Back Pain/Injury Stated complaint: LOWER BACK PAIN LEG PAIN Time Seen by Provider: 01/06/24 21:11 Source: patient Mode of arrival: EMS History of Present Illness HPI narrative: 43-year-old male with longstanding paraplegia arrives via EMS with reported 10/10 pain in bilateral legs and lower back that is not been relieved with ibuprofen. Patient reports a history of asthma and does reports that he fell from his wheelchair proximally 4 days ago as reported to me but in triage note states 1 week ago. Related Data Home Medications Medication Instructions Recorded Confirmed docusate sodium 100 mg capsule 100 mg PO DAILY 11/19/20 05/25/23 (Colace) albuterol sulfate 90 mcg/actuation 2 puff inhalation Q6H PRN wheezing 05/25/23 05/25/23 aerosol inhaler (Ventolin HFA) Previous Rx's Medication Instructions Recorded ascorbic acid (vitamin C) 1,000 mg 1,000 mg PO DAILY 90 days #90 tabs 05/25/23 tablet methenamine hippurate 1 gram tablet 1 g PO daily 90 days #90 tabs 05/25/23 cefdinir 300 mg capsule 300 mg PO BID 7 days #14 caps 01/07/24 Allergies Allergy/AdvReac Type Severity Reaction Status Date / Time Penicillins Allergy Severe RASH/AGITAT Verified 01/06/24 22:10 ION Review of Systems Review of Systems: Pertinent positives and negatives as stated in HPI [facility] Past Medical History Source: nursing notes reviewed Medical History Constipation Paraplegia Surgical History Hx of appendectomy Family History Family History Father Unknown family medical history Mother No problems noted. Social History Social History Alcohol intake: current Alcohol intake frequency: does not drink Cigarettes Per Day: 3 Smoked in Last 30 Days: Yes Use of substances other than those prescribed or required for medical reasons: No Advance Directives: No Advance Directives Information Provided: No Physical Exam ED Vital Signs: Vital Signs - 24 hr 01/06/24 20:29 01/06/24 22:29 01/07/24 00:16 Temperature 98.3 F 98.1 F 98.0 F Pulse Rate 82 85 94 Respiratory Rate 16 18 18 Blood Pressure 113/71 111/67 127/81 Pulse Oximetry 99 98 98 Oxygen Delivery Method Room Air Room Air Room Air BMI result Body Mass Index 35.1 VITAL SIGNS: Reviewed. GENERAL: Well developed, well nourished, in no acute distress. HEAD: Normocephalic/atraumatic EYES: PERRLA, EOMI EARS: Ext canals without abnormality NOSE: Nares patent bilateral OROPHARYNX: no oral lesions noted, posterior pharynx clear NECK: Supple, no adenopathy LUNGS: Normal breath sounds. No adventitious sounds or accessory muscle use. SpO2<99> CARDIOVASCULAR: Regular rate and rhythm without noted murmurs ABDOMEN: Soft, non-tender, non-distended with bowel sounds. Buttocks/Perineal Area: [sand filler- Zoe]- no erythema/induration, there is a noted fistula appearance without erythema/induration or active purulent drainage MUSCULOSKELETAL: No tenderness, deformities, or effusions noted on gross inspection. EXTREMITIES: No cyanosis, clubbing or edema. SKIN: Inspection of the skin reveals no rashes NEUROLOGIC: Alert and oriented x 4. Strength and sensation to light touch were grossly intact x 4. Medications Administered Discontinued Medications Generic Name Dose Route Start Last Admin Trade Name Freq PRN Reason Stop Dose Admin Acetaminophen 975 mg 01/06/24 23:34 01/06/24 23:49 Acetaminophen 325 Mg Tablet PO 01/06/24 23:35 975 mg ONCE ONE Administration Sodium Chloride 1,000 mls @ 999 mls/hr 01/06/24 22:00 01/06/24 22:06 Ns IV 01/06/24 23:00 999 mls/hr .Q1H1M JOSE M Administration Ceftriaxone Sodium 1 gm/ 50 mls @ 100 mls/hr 01/06/24 21:56 01/06/24 22:35 Sodium Chloride IV 01/06/24 22:25 Infused ONCE ONE Infusion Iohexol 100 ml 01/06/24 22:51 01/06/24 22:54 Iohexol 350 Mg/Ml 100 Ml Infus..Btl IV 01/06/24 22:52 100 ml ONCE ONE Administration Ketorolac Tromethamine 15 mg 01/06/24 21:58 01/06/24 22:05 Ketorolac Tromethamine 30 Mg/Ml Vial IVPUSH 01/06/24 21:59 15 mg ONCE ONE Administration Oxycodone HCl 5 mg 01/07/24 00:20 01/07/24 00:33 Oxycodone Hcl Immed Release 5 Mg Tablet PO 01/07/24 00:21 5 mg ONCE ONE Administration Phenazopyridine HCl 200 mg 01/06/24 21:58 01/06/24 22:05 Phenazopyridine Hcl 200 Mg Tablet PO 01/06/24 21:59 200 mg ONCE ONE Administration Medical Decision Making Medical Decision Making MDM Narrative: 43-year-old male with history and clinical presentation, DDX: Urinary tract infection, appendicitis, constipation, renal colic I reviewed all investigations and hematologic indices demonstrate a consistent leukocytosis with left shift and a normocytic anemia without thrombocytopenia. Chemistry indices do not demonstrate an CHRIS or electrolyte/liver enzyme derangements. Urinalysis demonstrates nitrite positive urine, patient received IV fluids/pain medication/antibiotics. Given the fact that patient is paraplegic and may have atypical referred pain proceeded with CT abdomen and pelvis which demonstrated some suggestion of inflammation within the buttock region that was consistent with previous findings on 08/22/2023 but on clinical exam there are no findings to suggest acute abscess or cellulitic changes, however there is evidence to suggest a fistula. There was identification of cholelithiasis but unable to further quantify cholecystitis and once again given patient's complaints of back pain with radiation into the right hip and lower extremity proceeded with right upper quadrant ultrasound which confirmed cholelithiasis but no other findings to suggest cholecystitis. My interpretation is that patient presents with findings consistent with urinary tract infection/pyelonephritis and will be treated for this condition and otherwise strongly encouraged to get an outpatient primary care doctor for further management concerns. Differential Diagnosis Differential Diagnoses: The differential diagnosis associated with the presentation includes Please see the discussion above Admission/Observation Consideration of admission/observation: Escalation of care including admission/observation considered Please see the discussion above Lab Data [facility] Lab Attestation statement: I reviewed the patient's lab results. Please see the discussion above 01/06/24 20:47 01/06/24 20:47 Labs: Lab Results 01/06/24 01/06/24 Range/Units 20:47 21:26 WBC 13.2 H (4.8-10.8) X10*3/uL RBC 4.64 (4.60-5.80) X10*6/uL Hgb 13.4 L (14.0-18.0) g/dl Hct 40.1 L (42.0-52.0) % MCV 86.4 (80.0-98.0) fL MCH 28.9 (27.0-33.0) pg MCHC 33.4 (31.0-36.0) g/dl RDW 12.9 (11.0-16.0) % Plt Count 207 D (160-400) X10*3/uL MPV 8.7 L (9.4-12.4) fL Immature Gran % (Auto) 0.4 (0.0-0.4) % Neut % (Auto) 76.5 H (45-73) % Lymph % (Auto) 9.3 L (20-40) % Nash % (Auto) 11.6 H (2-11) % Eos % (Auto) 2.1 (0-4) % Baso % (Auto) 0.1 (0-2) % Lymph # (Auto) 1.2 (1.2-4.9) X10*3/uL Nash # (Auto) 1.5 H (0.1-1.2) X10*3/uL Eos # (Auto) 0.3 (0.0-0.4) X10*3/uL Baso # (Auto) 0.0 (0.0-0.2) X10*3/uL Abs Immat Gran (auto) 0.05 H (0.00-0.03) X10*3/uL Absolute Neuts (auto) 10.1 H (2.0-8.3) x10*3/uL Absolute Nucleated RBC 0.000 (0.0-0.012) X10*3/uL Nucleated RBC % (auto) 0.0 (0.0-0.2) /100WBC Smear Tech's Comments VERIFIED Sodium 138 (135-145) mmol/L Potassium 3.4 (3.3-5.1) mmol/L Chloride 107 (96-108) mmol/L Carbon Dioxide 23 (22-29) mmol/L Anion Gap 10 L (12-20) BUN 7 L (9-16) mg/dL Creatinine 0.66 (0.5-1.4) mg/dL Estim Creat Clear Calc 211.7 Estimated GFR > 60 Random Glucose 100 (60-115) mg/dL Calcium 8.7 (8.4-10.2) mg/dL Total Bilirubin 0.6 (0.0-1.0) mg/dL AST 9 (5-37) U/L ALT 10 (0-40) U/L Alkaline Phosphatase 88 (39-117) U/L Total Protein 7.2 (6.5-8.0) g/dL Albumin 3.4 L (3.5-5.0) g/dL Urine Color Dark Yellow Urine Appearance Cloudy Urine pH 6.0 (5.0-9.0) Ur Specific [place] >= 1.030 H (1.005-1.025) Urine Protein Trace (Neg-Trace) mg/dL Urine Glucose (UA) Negative (Negative) mg/dL Urine Ketones Trace (Negative) mg/dL Urine Blood Negative (Negative) Urine Nitrite Positive H (Negative) Ur Leukocyte Esterase Small (1+) H (Negative) Urine RBC 0-2 (0-2) /HPF Urine WBC 0-5 (0-5) /HPF Ur Squamous Epith Cells 3-5 (0-2) /HPF Urine Bacteria 4+ (None Seen) Hyaline Casts 0-2 (0-2) /LPF Radiology Impression Discussion of test interpretation with radiology: I have reviewed the radiologist's reading. Radiologist Impression: Please see the discussion above External Record Review External record reviewed: Outpatient record, Prior outpatient labs and Prior outpatient radiology Chronic Conditions Paraplegia Critical Care Time Critical Care Time Critical Care Time: Yes Total Critical Care Time: 60 Attestation: I personally attest to this time spent taking care of the patient. Discharge Plan Discharge Clinical Impression: Cystitis, Pyelonephritis Patient Disposition: Home, Self-Care Instructions: Urinary Tract Infection in Men (DC), Kidney Infection (ED) Additional Instructions: 1. Resume all home medications as prescribed. 2. Complete the course of antibiotics as prescribed. Get a primary care doctor at your earliest convenience. Prescriptions: New cefdinir 300 mg capsule 300 mg PO BID 7 Days Qty: 14 0RF No Action docusate sodium [Colace] 100 mg capsule 100 mg PO DAILY albuterol sulfate [Ventolin HFA] 90 mcg/actuation HFA aerosol inhaler 2 puff inhalation Q6H PRN (Reason: wheezing) methenamine hippurate 1 gram tablet 1 g PO daily 90 Days Qty: 90 1RF ascorbic acid (vitamin C) 1,000 mg tablet 1,000 mg PO DAILY 90 Days Qty: 90 1RF
--- NOTE | 2024-01-06 22:03 | PC.NURSE ---
Per Dr. Soria, no blood cultures necessary at this time. Okay to administer Ceftriaxone
[2024-01-06] MEDS: Phenazopyridine HCL 200 MG TABLET PO (22:05)
[2024-01-06] MEDS: Ketorolac Tromethamine 30 MG/ML VIAL 15 MG IVPUSH (22:05)
[2024-01-06] MEDS: cefTRIAXone sodium 1 GM in 0.9 % Sodium Chloride 50 ML IV (22:05)
[2024-01-06] MEDS: 0.9 % Sodium Chloride 1,000 ML 999 ML IV (22:06)
[2024-01-06 22:16] LABS: Alanine Aminotransferase 10 U/L (0-40); Albumin Level 3.4 g/dL (3.5-5.0); Alkaline Phosphatase 88 U/L (39-117); Aspartate Amino Transferase 9 U/L (5-37); Bilirubin Total 0.6 mg/dL (0.0-1.0); Blood Urea Nitrogen 7 mg/dL (9-16); Calcium 8.7 mg/dL (8.4-10.2); Carbon Dioxide 23 mmol/L (22-29); Chloride 107 mmol/L (96-108); Creatinine Clr Calc Pharmacy 211.7; Estimated Glomerular Filt Rate > 60; Glucose Random 100 mg/dL (60-115); Potassium 3.4 mmol/L (3.3-5.1); Sodium 138 mmol/L (135-145); Total Protein 7.2 g/dL (6.5-8.0)
--- NOTE | 2024-01-06 22:21 | PC.NURSE ---
PT laying in bed, reports pain 10/10 to bilateral legs and lower back. Medicated per JAN. Fluids running as well as Ceftriaxone. Plan of care ongoing.
[2024-01-06 22:29] VITALS: BP 111/67; PULSE 85; RESP 18; TEMP 36.7; O2SAT 98
[2024-01-06] MEDS: iohexoL 350 MG/ML 100 ML INFUS..BTL IV (22:54)
[2024-01-06] MEDS: Acetaminophen 325 MG TABLET 975 MG PO (23:49)
--- NOTE | 2024-01-07 00:06 | PC.NURSE ---
PT continues to c/o of 10 pain to back and legs, Dr. Soria aware, medicated with 975mg acetaminophen per order
[2024-01-07 00:16] VITALS: BP 127/81; PULSE 94; RESP 18; TEMP 36.7; O2SAT 98
--- NOTE | 2024-01-07 00:17 | MHC.EDTECH ---
This tech took over care of patient at 2300,hourly rounds and vitals completed. Call moreno in reach
[2024-01-07] MEDS: oxyCODONE HCl Immed Release 5 MG TABLET PO (00:33)
== END 2024-01-07 01:49 | disposition home or self-care (01) ==
PROVIDERS: Emergency Provider Student in an Organized Health Care Education/Training Program
DX: N30.90 Cystitis, unspecified without hematuria (principal); N12 Tubulo-interstitial nephritis, not specified as acute or chronic; J45.909 Unspecified asthma, uncomplicated; G82.20 Paraplegia, unspecified; Z99.3 Dependence on wheelchair
CPT/HCPCS: 36415; 74177; 76705; 80053; 81001; 85025; 87086; 87088; 87186; 96361; 96365; 96375; 99285; J0696; J1885; Q9967

== ENCOUNTER 2024-02-23 17:53 | Outpatient (REF) | payer MEDICAID, SELFPAY | END 2024-02-23 17:54 | disposition home or self-care (01) | LOC: HO.HHCLNP 17:53 | PROVIDERS: Visit Provider Nurse Practitioner Family | DX: R30.0 Dysuria (principal); N39.0 Urinary tract infection, site not specified | CPT/HCPCS: 87086; 87088; 87147; 87186 ==

== ENCOUNTER 2024-07-20 09:53 | Outpatient (REF) | payer MEDICAID, SELFPAY ==
[2024-07-20 14:23] LABS: Estimated Average Glucose 97 mg/dL
[2024-07-20 14:25] LABS: Appearance Urine Clear; Color Urine Yellow; Glucose Urine UA Negative (Negative); Leukocyte Esterase Urine Trace (Negative); Nitrite Urine Negative (Negative); PH 7.5 (5.0-9.0); UMIC TRIGGER UACC YES; Urine Blood Negative (Negative); Urine Ketones Negative (Negative); Urine Protein Negative (Neg-Trace)
[2024-07-20 14:39] LABS: Alanine Aminotransferase 16 U/L (0-40); Albumin Level 4.1 g/dL (3.5-5.0); Alkaline Phosphatase 117 U/L (39-117); Anion Gap 11 (12-20); Aspartate Amino Transferase 15 U/L (5-37); Bilirubin Total 0.4 mg/dL (0.0-1.0); Blood Urea Nitrogen 16 mg/dL (9-16); Calcium 9.6 mg/dL (8.4-10.2); Carbon Dioxide 26 mmol/L (22-29); Chloride 105 mmol/L (96-108); Cholesterol 188 mg/dL (<200); Estimated Glomerular Filt Rate > 60; Glucose Random 85 mg/dL (60-115); HDL Cholesterol 43 mg/dL (>40); LDL Cholesterol Calculated 125 mg/dL (<100); Potassium 3.9 mmol/L (3.3-5.1); Sodium 138 mmol/L (135-145); Triglycerides 104 mg/dL (<150)
[2024-07-20 14:54] LABS: Bacteria Urine 4+ (None Seen); Hyaline Casts Urine 0-2 /LPF (0-2); RBC Urine 0-2 /HPF (0-2); Squamous Epithelial Cell Urine 0-2 /HPF (0-2); WBC Urine 0-5 /HPF (0-5)
[2024-07-20 17:23] LABS: Reflex LDLD? No
[2024-07-21 04:34] LABS: Syphilis Screen Nonreactive (Nonreactive)
[2024-07-21 05:01] LABS: Hepatitis A Antibody IgG REACTIVE (Nonreactive); ~Hepatitis A Antibody IgG 1.43 S/CO (0.00-0.99)
[2024-07-21 05:09] LABS: HBS Num1 98.05 mIU/mL (0-7.99); HBc Num1 0.11 S/CO (0.00-0.79); HBsAGNum1 0.31 S/CO (0.00-0.99); HIV AB/AG Nonreactive (Nonreactive); HIV Num 1 0.04 S/CO (0.00-0.99); Hepatitis B Core Antibody Nonreactive (Nonreactive); Hepatitis B Surface Antigen Negative (Negative); ~Hepatitis B Surface Antibody REACTIVE (Nonreactive); ~Hepatitis C Antibody Nonreactive (Nonreactive)
[2024-07-21 09:32] LABS: CT PCR NOT DETECTED (Not Detect.); NG PCR NOT DETECTED (Not Detect.)
== END 2024-07-20 09:54 | disposition home or self-care (01) ==
LOC: HO.CHCLDS 09:53
PROVIDERS: Referring Provider Family Medicine; Visit Provider Family Medicine
DX: Z11.3 Encounter for screening for infections with a predominantly sexual mode of transmission (principal); Z13.220 Encounter for screening for lipoid disorders; Z13.1 Encounter for screening for diabetes mellitus; N39.0 Urinary tract infection, site not specified
CPT/HCPCS: 36415; 80053; 80061; 81001; 83036; 86704; 86706; 86708; 86780; 86803; 87340; 87389; 87491; 87591

== ENCOUNTER 2024-10-24 14:15 | Outpatient (REF) | payer MEDICAID, SELFPAY ==
[2024-10-24 17:40] LABS: Appearance Urine Cloudy; Color Urine Yellow; Glucose Urine UA Negative (Negative); Leukocyte Esterase Urine Small (1+) (Negative); Nitrite Urine Negative (Negative); PH 6.5 (5.0-9.0); Specific Gravity - Urine 1.025 (1.005-1.025); UMIC TRIGGER UACC YES; Urine Blood Negative (Negative); Urine Ketones Negative (Negative); Urine Protein Negative (Neg-Trace)
[2024-10-24 18:04] LABS: Bacteria Urine 4+ (None Seen); Hyaline Casts Urine 0-2 /LPF (0-2); RBC Urine 0-2 /HPF (0-2); UACC Culture Trigger YES; WBC Urine 0-5 /HPF (0-5)
== END 2024-10-24 14:16 | disposition home or self-care (01) ==
LOC: HO.CHCLNP 14:15
PROVIDERS: Visit Provider Family Medicine
DX: N39.0 Urinary tract infection, site not specified (principal)
CPT/HCPCS: 81001; 87086; 87088; 87186

== ENCOUNTER 2025-04-17 17:43 | Outpatient (REF) | payer MEDICAID, SELFPAY ==
[2025-04-17 17:53] LABS: Appearance Urine Clear; Color Urine Yellow; Glucose Urine UA Negative (Negative); Leukocyte Esterase Urine Small (1+) (Negative); Nitrite Urine Positive (Negative); UMIC TRIGGER UACC YES; Urine Blood Negative (Negative); Urine Ketones Negative (Negative); Urine Protein Negative (Neg-Trace)
--- OUTSIDE RECORDS SUMMARY | 2025-04-17 17:58 | XMS_ITS | Encounter Summary ---
Author Organization [employer] Address [address] [place] [address] Care Team Providers Care Air Operations Manager Name Role Phone Ruby Figueroa MD Primary Care Provider [phone] Reason for Visit * Reason Onset Date Comments callback requested 09/26/2024 Encounter Details Date Type Department Care Team ([facility] Contact Info) Description 09/26/2024 Telephone [facility] MEDICINE [address] [place] [address] Ruby Figueroa MD [address] [place] [address] callback requested Social History Tobacco Use Types Packs/Day Years Used Date Smoking Tobacco: Every Day Cigarettes 0.5 27.4 Started: 11/09/1997 Smokeless Tobacco: Never Alcohol Use Standard Drinks/Week Comments Not Currently 0 (1 standard drink = 0.6 oz pur e alcohol) Depression Answer Date Recorded Patient Health Questionnaire-9 Score 18 08/31/2023 Patient Health Questionnaire-9 Score 18 08/31/2023 Last PHQ-9: Questionnaire Data Not on file 1 Housing Stability Answer Date Recorded What is your housing situation today? I have ashish sing 07/12/[address] you li ve. Do you have problems with any of the following? None of the above 07/12/2024 Food Insecurity Answer Date Recorded Within the past 12 months, y ou worried that your food would run out before you got money to buy more: Never True 07/12/2024 Within the past 12 months,th e food you bought just didn't last and you didn't have enough money to get more: Never True 01/2024 Transportation Answer Date Recorded In the past 12 months, has l ack of transportation kept you from medical appts, meetings, work or from getting things needed for daily living? No 07/12/2024 Utilities Answer Date Recorded In the past 12 months, has t he electric, gas, oil or water company threatened to shut off services in your home? No 07/12/2024 Depression Answer Date Recorded Patient Health Questionnaire-2 Score 6 08/31/2023 Internet Access Answer Date Recorded Internet Access Q1 Yes 07/12/2024 Internet Access Q2 Not on file 07/12/2024 Sex and Gender Information Value Date Recorded Sex Assigned at Male 09/08/2022 10:15 AM EDT Legal Sex Male 10:15 AM EDT Gender Identity Male 09/08/2022 10:15 AM EDT Sexual Orientation Straight 09/08/2022 10 :15 AM EDT documented as of this encounter Miscellaneous Notes * Telephone Encounter - Pasquale Borja - 09/26/2024 10:28 AM EST Tc from pt requesting a callback due to pt using a wheel chair and states needs help on everything,pt doesn't have any help to do his own personal stuff Callback number [phone] documented in this encounter Plan of Treatment Not on file documented as of this encounter Visit Diagnoses Not on filedocumented in this encounter Additional Health Concerns Assessment Noted Time PHQ-9 Depression Total Score: 18 023 10:30 AM EDT documented as of this encounter Care Teams Air Operations Manager Relationship Specialty Start Date End Date Ruby Figueroa MD [address] [place] [address] PCP - General Family Medicine 07/20/24 [employer] 04/17/25 documented as of this encounter
[2025-04-17 18:10] LABS: Bacteria Urine 4+ (None Seen); Hyaline Casts Urine 0-2 /LPF (0-2); RBC Urine 0-2 /HPF (0-2); UACC Culture Trigger YES; WBC Urine 0-5 /HPF (0-5)
== END 2025-04-17 17:44 | disposition home or self-care (01) ==
LOC: HO.HHCLNP 17:43
PROVIDERS: Visit Provider Family Medicine
DX: R39.81 Functional urinary incontinence (principal); R30.0 Dysuria
CPT/HCPCS: 81001; 87086; 87088; 87186

== ENCOUNTER 2025-05-29 13:43 | Outpatient (AMB) | payer MEDICAID, SELFPAY ==
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
[2025-05-29 13:53] VITALS: BP 123/61; PULSE 75
--- OUTSIDE RECORDS SUMMARY | 2025-05-29 14:31 | XMS_ITS | Encounter Summary ---
Author Organization [employer] Address [address] [place] [address] Care Team Providers Care Punch Press Feeder Name Role Phone Ruby Figueroa MD Primary Care Provider [phone] Reason for Visit * Reason Onset Date Comments callback requested 09/26/2024 Encounter Details Date Type Department Care Team ([facility] Contact Info) Description 09/26/2024 Telephone [facility] MEDICINE [address] [place] [address] Ruby Figueroa MD [address] [place] [address] callback requested Social History Tobacco Use Types Packs/Day Years Used Date Smoking Tobacco: Every Day Cigarettes 0.5 27.6 Started: 11/09/1997 Smokeless Tobacco: Never Alcohol Use [...] do his own personal stuff Callback number [phone] documented in this encounter Plan of Treatment Not on file documented as of this encounter Visit Diagnoses Not on filedocumented in this encounter Additional Health Concerns Assessment Noted Time PHQ-9 Depression Total Score: 18 023 10:30 AM EDT documented as of this encounter Care Teams Punch Press Feeder Relationship Specialty Start Date End Date Ruby Figureoa MD [address] [place] [address] PCP - General Family Medicine 07/20/24 [employer] 04/17/25 documented as of this encounter
--- OUTSIDE RECORDS SUMMARY | 2025-05-29 14:31 | XMS_ITS ---
Author Name [facility] Organization Unknown Encounters Encounter Type Encounter Reason Primary Diagnosis Location Date Ambulatory [facility] 08/27/2023 Inpatient Sepsis, unspecified organism Sepsis, unspecified organism [facility] 08/23/2023 Care Team Organization Name Specialty Phone Email Start Date End [facility] te [facility] 11/29/2023 [facility] PCP,No Primary Care 08/27/2023 01/25/2025 [facility] 08/23/2023 01/25/2025 [facility] NO PCP Primary Care 08/23/2023 08/23/2023
--- OUTSIDE RECORDS SUMMARY | 2025-05-29 14:32 | XMS_ITS | Clinical Summary ---
Author Organization [facility] Address [address] [place] [address] Care Team Providers Care [facility] Name Role Phone Pcp, No Primary Care Provider Unavailabl e Allergies Active Allergy Reactions Criticality Noted Date Comments Penicillins Rash/Dermatitis Low 08/23/2023 Medications methocarbamol (ROBAXIN) 750 MG tabletIndicatio ns:Abscess and cellulitis of gluteal region Take 2 tablets (1,500 mg total) by mouth 3 (three) times a day. 84 tablet 08/24/2023 Active oxyCODONE (ROXICODONE) 5 MG immediate release tabletIndicatio ns:Abscess and cellulitis of gluteal region Take 1 tablet (5 mg total) by mouth every 4 (four) hours as needed for severe pain. Max Daily Amount: 30 mg 18 tablet 08/24/2023 Active acetaminophen (TYLENOL) 325 MG tabletIndicatio ns:Abscess and cellulitis of gluteal region Take 3 tablets (975 mg total) by mouth every 8 (eight) hours around the clock. 08/24/2023 Active sulfamethoxazol e-trimethoprim (BACTRIM DS,SEPTRA DS) 800-160 MG per tabletIndicatio ns:Abscess and cellulitis of gluteal region Take 1 tablet by mouth 2 (two) times a day. 14 tablet 08/24/2023 Active cefUROXime (CEFTIN) 500 MG tabletIndicatio ns:Abscess and cellulitis of gluteal region Take 1 tablet (500 mg total) by mouth 2 (two) times a day. 14 tablet 08/24/2023 Active metroNIDAZOLE (FLAGYL) 500 MG tabletIndicatio ns:Abscess and cellulitis of gluteal region Take 1 tablet (500 mg total) by mouth 3 (three) times a day. Take with meals or food to reduce stomach upset. 21 tablet 08/24/2023 Active Active Problems Problem Noted Date Diagnosed Date Gluteal abscess 08/23/2023 Abscess and cellulitis of gluteal region 023 Resolved Problems Problem Noted Date Diagnosed Date Resolved Date Sepsis 08/22/2023 01/20/2024 Social History Tobacco Use Types Packs/Day Years Used Date Smoking Tobacco: Every Day Cigarettes Alcohol Use Standard Drinks/Week Comments Yes 0 (1 standard drink = 0.6 oz pur e alcohol) [facility] Utilities Answer Date Recorded In the past 12 months has th e [employer], gas, oil, or water [employer] threatened to shut off services in your home? No 08/24/2023 AUDIT-C Answer Date Recorded Q1: How often do you have a drink containing alcohol? Never 08/23/2023 Q2: How many drinks containi ng alcohol do you have on a typical day when you are drinking? Patient does not drink Q3: How often do you have si x or more drinks on one occasion? Never 08/23/2023 Overall Financial Resource Strain (CARDIA) Answe r Date Recorded How hard is it for you to pa y for the very basics like food, housing, medical care, and heating? Not hard at all 08/24/2023 Hunger Vital Sign Answer Date Recorded Within the past 12 months, y ou worried that your food would run out before you got the money to buy more. Never true 08/24/20 23 Within the past 12 months, t he food you bought just didn't last and you didn't have money to get more. Never true 08/24/2023 PRAPARE - Transportation Answer Date Re corded In the past 12 months, has l ack of transportation kept you from medical appointments or from getting medications? No 08/09 In the past 12 months, has l ack of transportation kept you from meetings, work, or from getting things needed for daily living? No 08/24/2023 Housing Stability Vital Sign Answer Hermelindo e Recorded In the last 12 months, was t here a time when you were not able to pay the mortgage or rent on time? No 08/24/2023 In the last 12 months, how many places have you lived? 1 08/24/2023 In the last 12 months, was t here a time when you did not have a steady place to sleep or slept in a skilled nursing (including now)? No 08/24/2023 Sex and Gender Information Value Date Recorded Sex Assigned at Male 08/23/2023 3:26 AM EDT Legal Sex Male 6:34 PM EST Gender Identity Male 08/23/2023 3:26 AM EDT Sexual Orientation Choose not to disclose 2022 3:26 AM EDT Last Filed Vital Signs Vital Sign Reading Time Taken Comments Blood Pressure 121/63 08/24/2023 10:02 AM EDT Pulse 107 08/24/2023 10:02 AM EDT Temperature 37.1 C (98.8 F) 08/24/2023 10:02 AM EDT Respiratory Rate 18 08/24/2023 10:02 AM EDT Oxygen Saturation 97% 08/24/2023 10:02 AM EDT Inhaled Oxygen Concentration - - Weight 134 kg (294 lb 8.6 oz) 08/23/2023 3:24 AM EDT Height 193 cm (6' 4 ) 08/23/2023 5:16 AM EDT Body Mass Index 35.85 08/23/2023 3:24 AM EDT Plan of Treatment Health Maintenance Due Date Last Done Comments Hepatitis C Virus Screening 1982 HIV Screening 1995 DTaP/Tdap/Td Vaccines (1 - Tdap) 2001 Hepatitis B Vaccines (1 of 3 - 19+ 3-dose series) 2001 Pneumococcal Vaccine: Pediatric (0-5 Years) and At-Risk Patients (6 to 49 Years) (1 of 2 - PCV) 2001 COVID-19 Vaccine (1 - season) 2024 Influenza Vaccine 06/09/2025 08/16/2019, , 08/17/2017, Additional history exists HPV Vaccines Aged Out No longer eligi ble based on patient's age to complete this topic Insurance [facility] Advance Directives * Full Code (Latest Code Status on File) Date Activated Date Inactivated Comments 08/23/2023 4:25 AM Care Teams [facility] Relationship Specialty Start Date End Date Pcp, No PCP - General 08/23/23
== END 2025-05-29 14:00 | disposition home or self-care (01) ==
LOC: HO.HGS 13:43
PROVIDERS: PCP Family Medicine; Visit Provider Surgery
DX: L73.2 Hidradenitis suppurativa (principal)
CPT/HCPCS: 99203

== ENCOUNTER → 2025-05-29 13:43 | Outpatient (BNVA) | payer MEDICAID, SELFPAY | PROVIDERS: PCP Family Medicine; Visit Provider Surgery | DX: L73.2 Hidradenitis suppurativa (principal) | CPT/HCPCS: 99202 ==